=== PATIENT | female | born 1980 | race Caucasian/White ===

== ENCOUNTER 2017-06-17 16:13 | Emergency (ER) | payer BC | END 2017-06-17 19:03 | disposition home or self-care (01) | LOC: FTE 16:13 | DX: N61.0 Mastitis without abscess (principal) | CPT/HCPCS: 76642; 81025; 99284-25 ==

== ENCOUNTER 2017-07-05 01:26 | Emergency (ER) | payer BC ==
[2017-07-05] MEDS: LORAZEPAM 1 MG TAB PO (02:44)
[2017-07-05 03:11] LABS: ADD MAN DIFF? NO
[2017-07-05 03:13] LABS: WHITE BLOOD COUNT 7.8 10^3/ul (4.8-10.8)
[2017-07-05 03:13] LABS: BASOPHILS % 0.3 % (0.0-2.0); EOSINOPHILS # 0.2 10^3/ul (0.0-0.5); EOSINOPHILS % 2.2 % (0.0-7.0); HEMATOCRIT 38.5 % (37.0-47.0); HEMOGLOBIN 12.5 g/dl (12.0-16.0); LYMPHOCYTES # 3.3 10^3/ul (0.8-2.9); LYMPHOCYTES % 42.1 % (15.0-51.0); MEAN CORPUSCULAR HEMOGLOBIN 27.3 pg (29.0-33.0); MEAN CORPUSCULAR HGB CONC 32.5 g/dl (32.0-37.0); MEAN CORPUSCULAR VOLUME 84.1 fl (82.0-101.0); MEAN PLATELET VOLUME 10.1 fl (7.4-10.4); MONOCYTE # 0.4 10^3/ul (0.3-0.9); MONOCYTES % 4.6 % (0.0-11.0); NEUTROPHILS % 50.5 % (39.0-77.0); PLATELET COUNT 241 10^3/UL (140-415); RED BLOOD COUNT 4.58 10^6/ul (4.20-5.40); RED CELL DISTRIBUTION WIDTH 14.6 % (11.5-14.5)
[2017-07-05 03:34] LABS: ANION GAP 16 (8-16); BLOOD UREA NITROGEN 14 mg/dl (7-20); CALCIUM 9.5 mg/dl (8.4-10.2); CARBON DIOXIDE 25 mmol/L (21-31); CHLORIDE 107 mmol/L (97-110); CREATININE 0.57 mg/dl (0.44-1.00); GLUCOSE 92 mg/dl (70-220); SODIUM 144 mmol/L (135-144)
[2017-07-05 03:55] LABS: TROPONIN-I < 0.012 ng/ml (0.00-0.12)
== END 2017-07-05 04:22 | disposition home or self-care (01) ==
LOC: FTE 01:26
DX: R00.2 Palpitations (principal)
CPT/HCPCS: 36415; 71045; 80048; 84443; 84484; 85025; 93005; 99285-25

== ENCOUNTER 2017-10-08 13:38 | Emergency (ER) | payer BC ==
[2017-10-08] MEDS: IBUPROFEN 600 MG TAB PO (16:57)
== END 2017-10-08 17:01 | disposition home or self-care (01) ==
LOC: FTE 13:38
DX: N64.4 Mastodynia (principal)
CPT/HCPCS: 81025; 99282

== ENCOUNTER 2017-11-17 03:57 | Emergency (ER) | payer BC ==
[2017-11-17 04:51] LABS: URINE BLOOD (Dip) POC Trace-lysed (NEGATIVE); URINE GLUCOSE (Dip) POC Negative (NEGATIVE); URINE KETONES (Dip) POC Negative (NEGATIVE); URINE LEUKOCYTE EST (Dip) POC Negative (NEGATIVE); URINE NITRITE (Dip) POC Negative (NEGATIVE); URINE TOTAL PROTEIN POC Negative (NEGATIVE)
[2017-11-17 04:51] LABS: URINE PH (Dip) POC 5.5 (5.0-8.5)
[2017-11-17 06:09] LABS: ADD MAN DIFF? NO
[2017-11-17 06:14] LABS: BASOPHILS % 0.5 % (0.0-2.0); EOSINOPHILS # 0.2 10^3/ul (0.0-0.5); EOSINOPHILS % 2.3 % (0.0-7.0); HEMATOCRIT 39.3 % (37.0-47.0); LYMPHOCYTES # 2.6 10^3/ul (0.8-2.9); LYMPHOCYTES % 39.9 % (15.0-51.0); MEAN CORPUSCULAR HEMOGLOBIN 27.5 pg (29.0-33.0); MEAN CORPUSCULAR HGB CONC 33.1 g/dl (32.0-37.0); MEAN CORPUSCULAR VOLUME 83.3 fl (82.0-101.0); MEAN PLATELET VOLUME 10.4 fl (7.4-10.4); MONOCYTE # 0.4 10^3/ul (0.3-0.9); MONOCYTES % 5.4 % (0.0-11.0); NEUTROPHIL # 3.4 10^3/ul (1.6-7.5); NEUTROPHILS % 51.7 % (39.0-77.0); PLATELET COUNT 254 10^3/UL (140-415); RED BLOOD COUNT 4.72 10^6/ul (4.20-5.40); RED CELL DISTRIBUTION WIDTH 13.9 % (11.5-14.5)
[2017-11-17 06:14] LABS: WHITE BLOOD COUNT 6.6 10^3/ul (4.8-10.8)
[2017-11-17] MEDS: ONDANSETRON 4 MG INJ IV (06:15)
[2017-11-17] MEDS: HYDROmorphONE 1 MG/ML SYG IV (06:15)
[2017-11-17] MEDS: SOD CHLORIDE 0.9% 1,000 ML IV (06:16)
[2017-11-17 06:29] LABS: INR 1.01; PROTIME 13.4 Sec (11.9-14.9)
[2017-11-17 06:30] LABS: ALANINE AMINOTRANSFERASE 43 IU/L (13-69); ALKALINE PHOSPHATASE 114 IU/L (42-121); AMYLASE 72 U/L (11-123); ANION GAP 16 (8-16); ASPARTATE AMINO TRANSFERASE 27 IU/L (15-46); BILIRUBIN,INDIRECT 0.4 mg/dl (0-1.1); BILIRUBIN,TOTAL 0.4 mg/dl (0.2-1.3); BLOOD UREA NITROGEN 12 mg/dl (7-20); CALCIUM 9.8 mg/dl (8.4-10.2); CARBON DIOXIDE 23 mmol/L (21-31); CHLORIDE 107 mmol/L (97-110); CREATININE 0.62 mg/dl (0.44-1.00); GLUCOSE 94 mg/dl (70-220); LIPASE 62 U/L (23-300); PARTIAL THROMBOPLASTIN TIME 28.9 Sec (23.0-35.0); POTASSIUM 4.2 mmol/L (3.5-5.1); SODIUM 142 mmol/L (135-144); TOTAL PROTEIN 7.2 g/dl (6.1-8.1)
[2017-11-17 06:31] LABS: ALBUMIN/GLOBULIN RATIO 1.25
[2017-11-17 06:42] LABS: TROPONIN-I < 0.012 ng/ml (0.000-0.120)
[2017-11-17] MEDS: SOD CHLORIDE 0.9% 100 ML (08:07)
[2017-11-17] MEDS: IOHEXOL 300MG/ML 150 ML BTL (08:08)
== END 2017-11-17 09:45 | disposition home or self-care (01) ==
LOC: FTE 03:57
DX: R10.13 Epigastric pain (principal)
CPT/HCPCS: 71045; 74177; 76705; 80053; 81003; 81025; 82150; 83690; 84484; 85025; 85610; 85730; 96361; 96374; 96375; 99285-25